=== PATIENT | female | born 1940 | race Caucasian/White ===

== ENCOUNTER 2016-09-10 11:11 | Inpatient (IN) | payer MEDICARE, BC ==
[~2016-09-10] VITALS: Ht 160 cm; Wt 72.7 kg
--- NOTE | ~2016-09-10 | CST ---
Cardiac Perfusion Imaging Demographics Patient Name SERAFIN Lucia Gender Female Patient Number [id number] Race Visit Number [id number] Ethnicity Corporate ID Room Number 503 Accession Number [id number] Height 64 inches Date of 1940 Weight 158 pounds Age 76 year(s) BSA 1.77 m Referring Physician Karl Lisa MD BMI 27.12 kg/m Interpreting Carlos ARANDA Date of study 09/12/2016 Physician Atul Supervising MD/TARAP Carlos MOORE Technologist Mandy Pollard Ordering Physician Karl Greene pharmaceutical development technician Stress ECG Reading Carlos ARANDA Nurse Porfirio Rodriguez Physician Atul The procedure was explained in detail to the patient. Risks, complications and alternative treatments were reviewed. Written consent was obtained. Medications Reviewed with Patient prior to Procedure. Procedure Procedure Type: Nuclear Stress Test:Pharmacological Procedure Start time: 09/12/2016 10:00 Indications: Chest pain and History of CAD. Risk Factors The patient risk factors include:former tobacco use, treated hypercholesterolemia, treated hypertension, family history of premature CAD, chronic lung disease, dyslipidemia, prior HI and ( years not smokin). Conclusions Summary Perfusion Images: The overall quality of the study is good. Left ventricular cavity is noted to be normal on the stress and rest studies. There is no evidence of abnormal lung activity. The right ventricle is not visualized and cannot be assessed. Stress SPECT images demonstrate homogenous tracer distribution throughout the myocardium. Rest SPECT images demonstrate homogenous tracer distribution throughout the myocardium. Gated SPECT imaging reveals normal myocardial thickening and wall motion. The left ventricular ejection fraction was calculated to be >75%. Impression 1. No ECG evidence of ischemia with Lexiscan infusion. 2. Myocardial perfusion imaging is normal. 3. Overall left ventricular systolic function was normal without regional wall motion abnormalities. 4. There are no previous studies for comparison. Stress Protocols Resting ECG Normal sinus rhythm. Nonspecific ST-T wave changes. Resting HR:86 bpm Resting BP:130/80 mmHg Stress Protocol:Pharmacologic Predicted HR: 145 bpm Test duration: 06:00 min ECG Findings No ECG changes suggestive of ischemia. Arrhythmias PAC's Complications Procedure complication: None. Stress Interpretation No ECG evidence of ischemia with Lexiscan infusion. Imaging Results Summed scores - Summed stress score: 0 - Summed rest score: 0 - Summed difference score: 0 Stress ejection Ejection fraction:84 % EDV :57 ml ESV :9 ml Stroke volume :48 ml LV mass :82 gr Imaging Protocols Rest Stress Isotope:Tc99m Myoview IV Isotope: Tc99m Myoview IV Isotope dose:10 mCi Isotope dose:30.4 mCi Date:09/12/2016 08:00 Date:09/12/2016 10:00 Technique: SPECT Technique: Gated Supine SPECT Supine IV remains in place after procedure. Scan Time:45-60 minutes post Scan Time:15-30 minutes post injection injection Procedure Medications - Regadenoson (Lexiscan) 0.4 mg IV over 10-15 sec. I.V. 0.4 mg. Medical History Admission Data Admission date: 09/10/2016 Admission Time: 13:00 Hospital Status: Inpatient. Signatures
[~2016-09-10 11:11] MED LIST: ATIVAN-DPS1 MG PO; BACTRIM DS DPS1 TAB PO; CYMBALTA30 MG PO; FLONASE 0.05% D16 GM NS; LIPITOR DPS40 MG PO; LOPRESSOR DPS50 MG PO; NEURONTIN DPS600 MG PO; PRILOSEC DPS20 MG PO; PROAIR HFA8.5 GM IH; VITAMIN D50000 UNIT PO
--- NOTE | 2016-09-10 17:49 | ER ---
ADMIT: 09/10/2016 RM/LOC: 503 [facility] MR#: [id number] 2620 [facility] [address] [place] [id number] ELIEL BETANCOURT [address] [place] [address] Emergency Room Report SEX: F AGE: 76 : 1940 DATE: 09/10/2016 TIME: 1111 hours. Please refer to my T-sheet for complete H and P. HISTORY OF PRESENT ILLNESS: Briefly, the patient is a 76-year-old, who comes in with 4 days of anxiety, weakness, vomiting, diarrhea, and no energy. She just does not feel herself. She has not been on antibiotics, has not traveled anywhere recently, just has been sick. PHYSICAL EXAMINATION: VITAL SIGNS: Blood pressure 143/78, pulse 96, respirations 14, temp 96.2, sat 100%. GENERAL: She is anxious. HEENT: Grossly normal. LUNGS: Slightly coarse. ABDOMEN: Soft, diffusely tender. No rebound or guarding. SKIN: No rash. EMERGENCY DEPARTMENT COURSE: We did the whole sepsis protocol on her and originally gave her 500 mL bolus and we are going to give her the sepsis protocol fluids, Zofran 4 IV, Ativan 1 mg which we repeated because she was anxious. CBC normal except white count of 10.4. Chemistries normal except sodium 129, potassium 3, glucose 133, phosphorus is 1.1. Lipase 461. UA was normal except 154 red cells, 3+ leukocyte esterase, 4 urobilinogen, 2+ ketones. We started the antibiotics per the sepsis protocol. She had a pen allergy. We are going to give 30 per kg bolus. I talked to Dr. Barajas, who will admit. ASSESSMENT: 1. Urinary tract infection. 2. Early sepsis. 3. Dehydration. 4. Confusion. PLAN: Admit to the hospital. Eusebio Cruz MD/ ubaldo JOB #: [id number] CC: Donnell Barajas MD, Attending Physician Donnell Barajas MD, Family Physician
[2016-09-14] MEDS ORDERED: ADVAIR DIS1 PUFF/DO1 IH (11:34)
[2016-09-14] MEDS ORDERED: ASA CHILDREN'S81 MG PO (11:35)
[2016-09-14] MEDS ORDERED: COZAAR100 MG PO (11:36)
[2016-09-14] MEDS ORDERED: SPIRIVA18 MCG IH (11:37)
[2016-09-14] MEDS ORDERED: ZOFRAN ODT4 MG PO (11:37)
--- NOTE | 2016-09-14 11:37 | DS ---
ADMIT: 09/10/2016 RM/LOC: 503 [facility] MR#: [id number] [address] [id number] ELIEL BETANCOURT [address] [place], [place] [address] Discharge Summary SEX: F AGE: 76 : 1940 ADMISSION DATE: 09/10/2016 DISCHARGE DATE: 09/13/2016 CONSULTATIONS: None. FINAL DIAGNOSES: 1. Sepsis resolved. 2. Pyelonephritis improved. 3. Hypoxia resolved. 4. COPD (chronic obstructive pulmonary disease) stable. 5. Nausea, vomiting, and diarrhea resolved. 6. Anxiety stable. 7. Chest pain resolved with a negative stress test. 8. Physical deconditioning. 9. Impaired mobility. 10.Hypoxia resolved. REASON FOR ADMISSION: Please see H and P dictated by Dr. Barajas. However, briefly, admitted with sepsis. HOSPITAL COURSE: Admitted to the service of [facility] under the care of Dr. Barajas. Received goal-directed therapy for chest pain, sepsis, as well as above diagnoses. Improved nicely throughout her hospitalization. Care is transitioned to myself on the morning of September 13. She has stable vital signs. She is on room air. She is afebrile. Cultures remain negative. Electrolytes are stable. She is ambulating well with her walker without need for supplemental oxygen. She is transitioned to oral antibiotic therapy. No culture evidence of anything at this point. She does have some allergies. Was transitioned from the aztreonam, and she will go home on oral Keflex for 14 days. I will request PT/OT as well as penitentiary and Home Health Care. DISPOSITION: Home with Home Health Care. DISCHARGE CONDITION: Stable. DISCHARGE MEDICATIONS: See medication reconciliation, it is reviewed and accurate. ADMIT: 09/10/2016 RM/LOC: 503 [facility] MR#: [id number] 2620 [facility] [address] [place] [phone] ELIEL BETANCOURT [address] [place] [address] Discharge Summary SEX: F AGE: 76 : 1940 DISCHARGE INSTRUCTIONS: Discharge to home. She will have Home Health Care, PT/OT, as well as penitentiary. She will also have 14 more days of Keflex, and I recommend she does follow up with my partner, Dr. Barajas, in 1 to 2 weeks' time. She is a bit stressed as her is currently being admitted to the hospital as well. However, she is excited to get home to see her little dog. I discussed this plan with Eliel as well as her daughter, they all expressed understanding, was in agreement, and had no further questions. Thirty minutes spent on discharge activities of this patient. Michael Mckinney MD/ delmar JOB #: [id number] CC: Donnell Barajas MD, Attending Physician Donnell Barajas MD, Family Physician
[2016-09-14] MEDS ORDERED: KEFLEX-DPS500 MG PO (11:38)
[2016-09-14] MEDS ORDERED: TRAMADOL HCL50 MG PO (11:38)
[2016-09-14] MEDS ORDERED: AMBIEN DPS10 MG PO (11:38)
[2016-09-14] MEDS ORDERED: K-PHOS NEUTRAL250 MG PO (11:39)
[2016-09-14] MEDS ORDERED: LOMOTIL-DPS1 TAB PO (11:39)
--- NOTE | 2016-09-21 12:27 | HP ---
ADMIT: 09/10/2016 RM/LOC: 503 [facility] MR#: [id number] [address] [address] ELIEL BETANCOURT [address] [place] [address] History and Physical SEX: F AGE: 76 : 1940 DATE OF SERVICE: CHIEF COMPLAINT: Nausea, vomiting, weakness. HISTORY OF PRESENT ILLNESS: The patient is a very pleasant 76-year-old female, she has a past medical history of coronary disease, COPD as well as anxiety, presents to [facility] today with complaints of nausea and just feeling weak and bad the last three days or so. The patient notes she has just really has not kept anything down since this last Thursday including medications and overall just notes weakness, had some diarrhea that started this morning. No blood or melena. No real abdominal discomfort is noted, maybe a little bit of cramping. Does note a little bit of urinary urgency and frequency, but absolutely no dysuria, fevers, chills, or flank pain has been noted. Denies any chest pain, but has had a little bit of wheeze and cough that has been noted. In the emergency room, she was noted to be hyponatremic, hypokalemic with an elevated white count and a urinalysis consistent with urinary tract infection and she was admitted for further evaluation and treatment. The patient notes she feels much better since arriving on the floor and receiving antiemetics and some IV fluids. PAST MEDICAL HISTORY: 1. 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 2. Obstructive sleep apnea. 3. Hypertension. 4. Coronary artery disease, status post non-ST segment elevation PA in 2011. 5. Depression/anxiety. 6. Status post cholecystectomy. 7. Diffuse osteoarthritis, status post Talavera's cyst removed from her right knee. 8. Status post tonsillectomy and adenoidectomy. 9. Status post appendectomy. 10.History of prior breast surgery. 11.Hypertension. 12.Hyperlipidemia. 13.Seasonal allergies. 14.GERD. 15.Chronic insomnia. ALLERGIES: PENICILLIN, TETRACYCLINES. SHE HAS ADVERSE REACTIONS TO JOSEY INHIBITORS. BACTRIM CAUSING NAUSEA AND VOMITING. HOME MEDICATIONS: Include: 1. Advair. 2. Atorvastatin. 3. Aspirin. 4. Cymbalta. 5. Fluticasone. 6. Gabapentin. 7. Ibuprofen. ADMIT: 09/10/2016 RM/LOC: 503 [facility] MR#: [id number] [address] [address] [facility] ELIEL M [address] [place] [address] History and Physical SEX: F AGE: 76 : 1940 8. Lorazepam. 9. Losartan. 10.Metoprolol. 11.Omeprazole. 12.ProAir. 13.Spiriva. 14.Tramadol. 15.Vitamin D. 16.Zetia. 17.Ambien. SOCIAL HISTORY: She is . is home, which she is the primary caregiver. She is an occasional drinker, remote smoker, quit many years ago. FAMILY HISTORY: Noncontributory. REVIEW OF SYSTEMS: As noted above. All other systems reviewed and negative. PHYSICAL EXAMINATION: VITAL SIGNS: 99.1, 111, 22, 172/77. She is saturating well on a couple of liters by nasal cannula. GENERAL: This is an elderly female, who appears her stated age. No apparent distress. She is awake. She is alert, oriented x3. Cooperative. HEENT: Normocephalic and atraumatic. Mucous membranes a little dry. NECK: Supple. LUNGS: She has just a diffuse wheeze, it is noted. No crackles or rhonchi are noted. HEART: Regular, little tachy. ABDOMEN: Soft, nontender, and nondistended. Positive bowel sounds throughout. No CVA tenderness is noted. EXTREMITIES: Shows trace to 1+ ankle edema. SKIN: Shows no obvious rashes. NEUROLOGIC: Cranial nerves II through XII are intact. No focal deficits are noted. Moves all extremities. She has good strength. LABORATORY DATA: Shows hemoglobin of 13.2, white count of 10.4, and 108,000 platelets. Sodium 129, potassium 3, phos is 1.1. BUN is 9 with a creatinine of 0.8. Procalcitonin is 0.49, troponin 0.026, lipase was 461, lactic acid was 2.0. Urinalysis looked pretty clear with 3+ leukocyte esterase, negative nitrite, 154 white cells, 1 red cell, no obvious bacteria. Blood cultures and urine cultures are pending. EKG shows normal sinus rhythm at 97 beats per minute. I do not notice any significant ST or T-wave changes at this point. Chest x-ray does have some mild elevation of the right hemidiaphragm that appears unchanged. Otherwise, I do not see any other airspace disease. ASSESSMENT AND PLAN: 1. Nausea and vomiting with pyuria, question gastroenteritis, rule out pyelonephritis. 2. Sepsis syndrome. ADMIT: 09/10/2016 RM/LOC: 503 [facility] MR#: [id number] [address] [place] [phone] [facility] [address] [place] [address] History and Physical SEX: F AGE: 76 : 1940 3. Delirium, resolving. 4. Hypokalemia. 5. Hyponatremia. 6. Hypophosphatemia. 7. Coronary artery disease with prior non ST-segment elevation myocardial infarction. 8. Chronic obstructive pulmonary disease/sarcoidosis with nocturnal hypoxemia. 9. History of obstructive sleep apnea. 10.Hypertension. 11.Anxiety/depression. At this point, the patient is feeling better just after some IV fluids and antiemetics. I really think this is probably delirium from urinary tract infection. Urine and blood cultures are pending. She is on antibiotics, although does not classically have urinary tract symptoms. We will wait for that culture to come back. We are going to correct her electrolytes. She is already receiving some potassium right now. Her nausea and vomiting are really nearly resolved. The patient wants to take some clear liquids, which I think would be reasonable. We will try oral phosphate replacement. I am going to grab another set of cardiac enzymes in the morning given her history. I will get her home medications restarted, especially her metoprolol. We will follow her, plan on getting her home respiratory regimen restarted including her Advair and Spiriva. We will plan some EzPAP and nebulized treatments as well, and we will follow her closely as an inpatient. Donnell Barajas MD/ ubaldo JOB #: [id number] CC: Donnell Barajas, Attending Physician Donnell Barajas, Family Physician
== END 2016-09-13 13:05 | disposition home health service (06) | DRG 872 ==
LOC: ER 11:11 → 5MS 13:00
PROVIDERS: ADMIT Internal Medicine
DX: A41.9 Sepsis, unspecified organism (principal); F05 Delirium due to known physiological condition; J44.9 Chronic obstructive pulmonary disease, unspecified; N12 Tubulo-interstitial nephritis, not specified as acute or chronic; E87.1 Hypo-osmolality and hyponatremia; F41.9 Anxiety disorder, unspecified; E86.0 Dehydration; E83.39 Other disorders of phosphorus metabolism; E87.6 Hypokalemia; D86.9 Sarcoidosis, unspecified; G47.33 Obstructive sleep apnea (adult) (pediatric); I10 Essential (primary) hypertension; R09.02 Hypoxemia; I25.10 Atherosclerotic heart disease of native coronary artery without angina pectoris; I25.2 Old myocardial infarction; F32.9 Major depressive disorder, single episode, unspecified; M15.9 Polyosteoarthritis, unspecified; E78.5 Hyperlipidemia, unspecified; K21.9 Gastro-esophageal reflux disease without esophagitis; G47.00 Insomnia, unspecified; Z79.82 Long term (current) use of aspirin; Z87.891 Personal history of nicotine dependence; Z66 Do not resuscitate